=== PATIENT | male | born 1990 | race Caucasian/White ===

== ENCOUNTER 2019-07-05 17:30 | Emergency (ER) | payer OTHER ==
--- NOTE | 2019-07-05 17:42 | EDM.PDOC ---
ED HPI GENERAL MEDICAL PROBLEM - General Chief Complaint: Laceration Stated Complaint: HAS A CUT ON HIS LEFT HAND Time Seen by Provider: 07/05/19 17:36 Source of Information: Reports: Patient History Limitations: Reports: No Limitations - History of Present Illness INITIAL COMMENTS - FREE TEXT/NARRATIVE: HISTORY AND PHYSICAL: History of present illness: Patient is a 29-year-old male who presents to the emergency room with complaints of a laceration across the MIP joint of the left fifth digit. He states he was using a box closing machine operator to open something when it slipped from his hand resulting in the laceration. Has full extension, but difficulty full close his fist. Tdap has been up-dated in the last 5 years. Offers no systemic complaints Review of systems: As per history of present illness and below otherwise all systems reviewed and negative. Past medical history: As per history of present illness and as reviewed below otherwise noncontributory. Surgical history: As per history of present illness and as reviewed below otherwise noncontributory. Social history: See social history for further information Family history: As per history of present illness and as reviewed below otherwise noncontributory. Physical exam: General: Well-developed and well-nourished 29-year-old male. Alert and oriented. Nontoxic-appearing and in no acute distress. HEENT: Atraumatic, normocephalic, pupils equal and reactive bilaterally, negative for conjunctival pallor or scleral icterus, mucous membranes moist, TMs normal bilaterally, throat clear, neck supple, nontender, trachea midline. No drooling or trismus noted. No meningeal signs. No hot potato voice noted. Lungs: Clear to auscultation, breath sounds equal bilaterally, chest nontender. Heart: S1S2, regular rate and rhythm without overt murmur Abdomen: Soft, nondistended, nontender. Skin: 1.5 cm laceration across the MIP joint of the left fifth digit, palmar surface. He is able to fully extend all fingers but does have difficulty with full closure of the fifth digit. Remaining skin is intact, warm, dry. No lesions or rashes noted. Extremities: See SKIN for details, moves all other extremities per self without difficulty or deficits, negative for cords or calf pain. Neurovascular unremarkable. Neuro: Awake, alert, oriented. Cranial nerves II through XII unremarkable. Cerebellum unremarkable. Motor and sensory unremarkable throughout. Exam nonfocal. Notes: 1% lidocaine was used for anesthetizing the area. Area was thoroughly irrigated and cleansed with chlorhexidine. Usual and customary procedures were followed for suture placement. 4-0 nylon, #3 interrupted sutures were placed. I do suspect a partial flexor tendon injury. Bacitracin nonstick dressing applied and patient was placed in a splint in a comfortable position. Spoke with Dr. Rey, [facility] hand surgeon who states he is available on Wednesday. We will have the patient call to set up this follow-up appointment for reevaluation and further management. Medication and supportive care measures were reviewed and discussed. Voices understanding and is agreeable to plan of care. Denies any further questions or concerns at this time. Diagnostics: None Therapeutics: Lidocaine, wound care, bacitracin Prescription: brittany Parekh Impression: Laceration Suspected flexor tendon injury Plan: 1. Keep the area clean and dry. Continue to monitor for signs of infection. Sutures to be removed in 7-10 days. 2. Tylenol and/or ibuprofen as needed for pain management. 3. Please follow-up with the Hand Surgeon at [facility] in [place]. Call tomorrow to set up appointment for 'suspected flexor tendon injury'. 4. Return to the ED as needed and as discussed. Definitive disposition and diagnosis as appropriate pending reevaluation and review of above. Left Finger-Little Pain Score (Numeric/FACES): 7 - Related Data Allergies Allergy/AdvReac Type Severity Reaction Status Date / Time No Known Allergies Allergy Verified 07/05/19 17:36 Home Meds: Home Meds . [No Known Home Meds] 07/05/19 [History] ED ROS GENERAL - Review of Systems Review Of Systems: Comprehensive ROS is negative, except as noted in HPI. ED EXAM, SKIN/RASH Exam: See Below (See dictation) Course - Vital Signs Last Recorded V/S: Last Vital Signs Temp 97.2 F 07/05/19 17:36 Pulse 82 07/05/19 17:36 Resp 18 07/05/19 17:36 BP 147/77 H 07/05/19 17:36 Pulse Ox 96 07/05/19 17:36 - Orders/Labs/Meds Meds: Medications Discontinued Medications Generic Name Dose Route Start Last Admin Trade Name Freq PRN Reason Stop Dose Admin Bacitracin 1 dose 07/05/19 17:44 07/05/19 18:06 Bacitracin Oint 1 Gm TOP 07/05/19 17:45 1 dose ONETIME ONE Administration Lidocaine HCl 2 ml 07/05/19 17:44 07/05/19 18:07 Xylocaine-Mpf 1% INJECT 07/05/19 17:45 2 ml ONETIME ONE Administration Departure - Departure Time of Disposition: 19:02 Disposition: Home, Self-Care 01 Clinical Impression: Injury of tendon of finger, Laceration - Discharge Information Instructions: Laceration Care, Adult, [id number] Referrals: PCP,None [Primary Care Provider] - (Please call and make an appointment tomorrow am with Dr. Rey who sees patients on Fridays. ) Forms: ED Department Discharge Additional Instructions: The following information is given to patients seen in the emergency department who are being discharged to home. This information is to outline your options for follow-up care. We provide all patients seen in our emergency department with a follow-up referral. The need for follow-up, as well as the timing and circumstances, are variable depending upon the specifics of your emergency department visit. If you don't have a primary care physician on staff, we will provide you with a referral. We always advise you to contact your personal physician following an emergency department visit to inform them of the circumstance of the visit and for follow-up with them and/or the need for any referrals to a consulting specialist. The emergency department will also refer you to a specialist when appropriate. This referral assures that you have the opportunity for follow-up care with a specialist. All of these measure are taken in an effort to provide you with optimal care, which includes your follow-up. Under all circumstances we always encourage you to contact your private physician who remains a resource for coordinating your care. When calling for follow-up care, please make the office aware that this follow-up is from your recent emergency room visit. If for any reason you are refused follow-up, please contact the [facility] Emergency Department at and asked to speak to the emergency department charge nurse. [facility] [address] [place] [id number] [facility] [address] [place] [address] 1. Keep the area clean and dry. Continue to monitor for signs of infection. Sutures to be removed in 7-10 days. 2. Tylenol and/or ibuprofen as needed for pain management. 3. Please follow-up with the Hand Surgeon at [facility] in [place]. Call tomorrow to set up appointment for 'suspected flexor tendon injury'. 4. Return to the ED as needed and as discussed. Sepsis Event Note - Focused Exam Vital Signs: Vital Signs Temp Pulse Resp BP Pulse Ox 07/05/19 17:36 97.2 F 82 18 147/77 H 96 Date Exam was Performed: 07/05/19 Time Exam was Performed: 18:56
[2019-07-05] MEDS ORDERED: Lidocaine 1% PF 2 ML SDV INJECT ONE (17:44)
[2019-07-05] MEDS ORDERED: Bacitracin Oint 1 GM U/D Packet TOP ONE (17:44)
== END 2019-07-05 18:38 | disposition home or self-care (01) ==
LOC: MW.ED 17:30
DX: S61.217A Laceration without foreign body of left little finger without damage to nail, initial encounter (principal); W27.8XXA Contact with other nonpowered hand tool, initial encounter
CPT/HCPCS: 12001; 99282; J2001